=== PATIENT | female | born 1990 | race Caucasian/White ===

== ENCOUNTER → 2023-10-11 | Outpatient (CLI) | payer BC ==
--- NOTE | 2023-10-12 11:46 | MR ---
EXAMINATION TYPE: MR shoulder RT wo con DATE OF EXAM: 10/11/2023 COMPARISON: None HISTORY: Right shoulder pain and limited range of motion TECHNIQUE: Multiplanar, multisequence imaging of the right shoulder is performed without contrast. FINDINGS: There is no degeneration of the AC joint or glenohumeral joint and there are no joint effusions. Ther e is no subacromial or subdeltoid bursitis. There is focal edema in the subchondral posterior superolateral humeral head at the insertion of the infraspinatus and there is a small recurrent tear of the infraspinatus. There is no retraction of the musculotendinous junction. The supraspinatus and subscapularis tendons are intact. The biceps tendon is normal in signal intensity and position within the bicipital groove and the peace ps anchor is intact. There is mild diffuse abnormal signal intensity in the superior cartilaginous la stevie but a discrete tear is not clearly identified. If there is clinical suspicion for SLAP injury th en MRI arthrogram is recommended. IMPRESSION: 1. Rim rent tear of the infraspinatus tendon without retraction. 2. Mild abnormal signal within the superior cartilaginous labrum as described above. If there is a cl inical suspicion for SLAP injury then MRI arthrogram is recommended. 3. No osteoarthritic changes of the AC joint or glenohumeral joint. 4. No subacromial or subdeltoid bursitis.
== END | disposition home or self-care (01) ==
LOC: RADMRIMAIN 18:53
PROVIDERS: ATTEND Family Medicine
DX: M67.813 Other specified disorders of tendon, right shoulder (principal); S46.001A Unspecified injury of muscle(s) and tendon(s) of the rotator cuff of right shoulder, initial encounter; M89.8X1 Other specified disorders of bone, shoulder; X58.XXXA Exposure to other specified factors, initial encounter